=== PATIENT | female | born 1965 | race African-American/Black ===

== ENCOUNTER 2016-09-09 09:24 | Emergency (ER) | payer OTHER ==
[~2016-09-09] VITALS: Ht 165.1 cm; Wt 91.4 kg
[~2016-09-09 09:24] MED LIST: DITROPAN XL10 MG PO; DITROPAN5 MG PO; FLOVENT 11120 INHALA IH; HAIR, SKIN & N1 EAC1 PO; ISENTRESS400 MG PO; KALETRA 200/501 TAB PO; MOBIC7.5 MG PO; MULTIVITAMIN1 EAC2 PO; NORVIR100 MG PO; PREZISTA800 MG PO; PROAIR HFA8.5 GM IH; PROAIR RESPICL90 MCG IH; TRUVADA1 TABLET PO; [UNRECOGNIZED DRUG - REMARK]
[2016-09-09] MEDS ORDERED: CLEOCIN300 MG PO (11:36)
[2016-09-09] MEDS ORDERED: ULTRAM50 MG PO (11:36)
[2016-09-09 11:43] VITALS: BP 128/90
== END 2016-09-09 11:44 | disposition home or self-care (01) ==
LOC: EME 09:24
DX: R59.1 Generalized enlarged lymph nodes (principal); M79.621 Pain in right upper arm; M79.622 Pain in left upper arm; R11.2 Nausea with vomiting, unspecified; R53.83 Other fatigue; B20 Human immunodeficiency virus [HIV] disease; F17.200 Nicotine dependence, unspecified, uncomplicated
CPT/HCPCS: 99281; 99283

== ENCOUNTER 2017-11-29 16:37 | Emergency (ER) | payer OTHER ==
[~2017-11-29] VITALS: Ht 165.1 cm; Wt 68.1 kg
[~2017-11-29 16:37] MED LIST changes: +CLEOCIN300 MG PO; +ULTRAM50 MG PO
[2017-11-29 17:47] LABS: APPEARANCE CLEAR ((CLEAR)); BILIRUBIN NEGATIVE; BLOOD NEGATIVE; COLOR YELLOW ((YELLOW)); GLUCOSE (STRIP) 50; KETONES 5; LEUKOCYTES TRACE; NITRITE NEGATIVE; PROTEIN (STRIP) 30; SPECIFIC GRAVITY 1.008 (1.000-1.030); UROBILINOGEN 0.2 MG/DL (0.2-1.0)
[2017-11-29 17:53] LABS: BACTERIA NONE SEEN /HPF; EPITHELIAL CELLS RARE /HPF; MUCUS NONE SEEN /LPF; RED BLOOD CELLS 0-5 /HPF (0-5); UCUL ADDED? NO; WHITE BLOOD CELLS 0-5 /HPF (0-5)
[2017-11-29] MEDS ORDERED: MOTRIN600 MG PO (18:14)
[2017-11-29] MEDS ORDERED: PREDNISONE20 MG PO (18:14)
[2017-11-29 18:43] VITALS: BP 100/64
== END 2017-11-29 18:50 | disposition home or self-care (01) ==
LOC: EME 16:37
PROVIDERS: Emergency Medicine
DX: M54.41 Lumbago with sciatica, right side (principal); Z21 Asymptomatic human immunodeficiency virus [HIV] infection status; F11.20 Opioid dependence, uncomplicated; K21.9 Gastro-esophageal reflux disease without esophagitis; B19.20 Unspecified viral hepatitis C without hepatic coma; Z88.0 Allergy status to penicillin; F17.200 Nicotine dependence, unspecified, uncomplicated
CPT/HCPCS: 81003; 81025; 99281; 99284; J7512